=== PATIENT | male | born 1975 ===

== ENCOUNTER 2018-10-12 17:18 | Emergency (ER) | payer MEDICAID ==
[2018-10-12] MEDS ORDERED: Sodium Chloride 0.9% 1,000 ML IV ONE ×2 (18:04→18:36)
--- NOTE | 2018-10-12 18:10 | C.PDOC ---
History Of Present Illness 43 year old male with PMHx of thyroid disease and heroin abuse presents to the ED complaining of abdominal cramping, non-bilious non-bloody vomiting, generalized mylgias and dizziness ongoing for 3 days. Denies any syncopal episodes, fever, chills, or urinary symptoms. Reports he shot heroin [employer]. <Marlin Willard - Last Filed: 10/12/18 18:56> History Per: Patient History/Exam Limitations: no limitations Onset/Duration Of Symptoms: Days (3) Current Symptoms Are (Timing): Still Present Location Of Pain/Discomfort: Diffuse Associated Symptoms: Nausea, Vomiting. denies: Fever, Chills, Diarrhea <Marlin Willard - Last Filed: 10/12/18 18:56> <Gagan Sánchez - Last Filed: 10/12/18 21:28> Time Seen by Provider: 10/12/18 17:22 Chief Complaint (Nursing): Abdominal Pain Past Medical History Reviewed: Historical Data, Nursing Documentation, Vital Signs Vital Signs: Last Vital Signs Temp 98 F 10/12/18 17:26 Pulse 58 L 10/12/18 17:26 Resp 18 10/12/18 17:26 BP 126/82 10/12/18 17:26 Pulse Ox 98 10/12/18 17:26 - Medical History PMH: Anxiety, Depression, Hypothyroidism Other Surgeries: Herniorrhaphy Family History: States: No Known Family Hx - Social History Hx Alcohol Use: No Hx Substance Use: Yes (heroin) - Immunization History Hx Tetanus Toxoid Vaccination: No Hx Influenza Vaccination: No Hx Pneumococcal Vaccination: No <Marlin Willard - Last Filed: 10/12/18 18:56> Vital Signs: Last Vital Signs Temp 97.8 F 10/12/18 20:35 Pulse 52 L 10/12/18 20:35 Resp 16 10/12/18 20:35 BP 121/76 10/12/18 20:35 Pulse Ox 99 10/12/18 20:35 <Gagan Sánchez - Last Filed: 10/12/18 21:28> Review Of Systems Except As Marked, All Systems Reviewed And Found Negative. Constitutional: Positive for: Weakness, Other (myalgias). Negative for: Fever, Chills Gastrointestinal: Positive for: Nausea, Vomiting, Abdominal Pain. Negative for: Diarrhea Genitourinary: Negative for: Dysuria, Frequency, Hematuria, Penile Discharge Neurological: Positive for: Dizziness <Marlin Willard Last Filed: 10/12/18 18:56> Physical Exam - Physical Exam Appears: Non-toxic, No Acute Distress Skin: Warm, Dry, Jaundice (slight) Head: Atraumatic, Normacephalic Eye(s): bilateral: Scleral Icterus Nose: Normal Oral Mucosa: Moist, Other (pink) Neck: Normal ROM, Supple Chest: Symmetrical Cardiovascular: Rhythm Regular Respiratory: No Rales, No Rhonchi, No Wheezing Gastrointestinal/Abdominal: Bowel Sounds (active and normal ), Soft, Tenderness (epigastric tenderness) Back: No CVA Tenderness Extremity: Normal ROM Extremity: Bilateral: Atraumatic, Normal Color And Temperature, Normal ROM Neurological/Psych: Oriented x3, Normal Speech Gait: Steady <Marlin Willard Filed: 10/12/18 18:56> ED Course And Treatment - Laboratory Results Result Diagrams: 10/12/18 18:18 10/12/18 18:18 ECG: Interpreted By Me, Viewed By Me ECG Rhythm: Sinus Bradycardia ECG Interpretation: No Acute Changes Interpretation Of ECG: Normal intervals. Normal axis. No ST elevations. Rate From EC O2 Sat by Pulse Oximetry: 98 (RA) Pulse Ox Interpretation: Normal <Marlin Willard Filed: 10/12/18 18:56> - Laboratory Results Result Diagrams: 10/12/18 18:18 11 18:18 Pulse Ox Interpretation: Normal - CT Scan/US CT abd/pelvis Other Rad Studies (CT/US): Read By Radiologist, Radiology Report Reviewed CT/US Interpretation: EXAM: CT Abdomen with IV contrast. CLINICAL HISTORY: PEERI UMBILICAL PAIN. TECHNIQUE: Axial computed tomography images of the abdomen and pelvis with intravenous contrast. 0.00 mGy-cm. CONTRAST: With; OMNI 300/100ML. COMPARISON: None provided. FINDINGS: LUNG BASES: The lung bases appear clear. No pleural effusions are seen. LIVER: Unremarkable. GALLBLADDER AND BILE DUCTS: The gallbladder appears within normal limits. Gallstones are present within a contracted gallbladder. No biliary ductal dilatation is evident. PANCREAS: Unremarkable. SPLEEN: Mildly enlarged at 14 cm in length. ADRENAL GLANDS: Unremarkable. KIDNEYS, URETERS, AND BLADDER: The kidneys appear within normal limits. There is no hydronephrosis or hydroureter. No urinary calculi are seen. STOMACH AND BOWEL: Unremarkable appearance of the stomach and bowel. No evidence of bowel obstruction. No evidence suggesting enteritis or colitis. Diverticular changes of mild thickening the wall of the sigmoid and distal descending colon present. APPENDIX: No evidence of acute appendicitis on CT examination. PERITONEUM: No free fluid. No free air. LYMPH NODES: No lymphadenopathy is evident. VASCULATURE: No evidence of abdominal aortic aneurysm. BONES: No aggressive appearing osseous lesion. No acute osseous pathology evident. Degenerative changes present with disc space narrowing at the lower lumbar spine. IMPRESSION: No acute intra-abdominal abnormality. Mildly enlarged spleen. Gallstones in a contracted gallbladder. Diverticular changes with mild wall thickening of the sigmoid and distal descending colon. No pericolonic stranding or abscess identified. Clinical correlation advised. . Electronically signed on Oct 12, 2018 8:52:48 PM EST by: Lukas Jiang M.D., Certified by Alfredo GELLER Radiology Progress Note: spoke with pt at length about the need for taking his meds. Pt also does not want to be hospitalized. Understands the risks including permanet dysability and . Encouraged to retur. Pt states that he fells much better and will return if symtoms recur Reevaluation Time: 21:22 Reassessment Condition: Improved <Gagan Sánchez - Last Filed: 10/12/18 21:28> Medical Decision Making Medical Decision Making: Plan - EKG - Bloodwork - XR abdomen - Zofran 4mg IVP - IV fluids - UA <Marlin Willard - Last Filed: 10/12/18 18:56> Medical Decision Making: Upon provider reevaluation patient is feeling better, is medically stable, and requires no further treatment in the ED at this time. Patient will be discharged home with Rx for synthroid. Counseling was provided and all questions were answered regarding diagnosis and need for follow up with the referred clinic. There is agreement to discharge plan. Return if symptoms persist or worsen. <Gagan Sánchez - Last Filed: 10/12/18 21:28> Disposition - Disposition Disposition Time: 19:00 <Marlin Willard - Last Filed: 10/12/18 18:56> Counseled Patient/Family Regarding: Studies Performed, Diagnosis, Need For Followup, Rx Given <Gagan Sánchez - Last Filed: 10/12/18 21:28> - Disposition Referrals: [facility] [Outside] [facility] [Outside] Disposition: HOME/ ROUTINE Condition: FAIR Additional Instructions: Please return id symptoms recur Prescriptions: Levothyroxine [Synthroid] 100 mcg PO DAILY #14 tab Instructions: Acute Abdomen (Belly Pain), Adult (DC), Gallstones (DC), Hypothyr oidism (Underactive Thyroid) (DC) - Clinical Impression Clinical Impression: Abdominal pain, Transaminitis, Hypothyroid, Gallstones - Scribe Statement The provider has reviewed the documentation as recorded by the Scriblillie Hooper All medical record entries made by the Scribe were at my direction and personally dictated by me. I have reviewed the chart and agree that the record accurately reflects my personal performance of the history, physical exam, medical decision making, and the department course for this patient. I have also personally directed, reviewed, and agree with the discharge instructions and di sposition. <Marlin Willard - Last Filed: 10/12/18 18:56> Physician Patient Turnover Patient Signed Over To: Gagan Sánchez Handoff Comments: pending imaging, labs, ua, dispo <Marlin Willard - Last Filed: 10/12/18 18:56>
[2018-10-12 18:24] LABS: BASO # 0.1 K/uL (0.0-0.2); BASO % 1.7 % (0.0-2.0); EOS # 0.2 K/uL (0.0-0.7); EOS % 5.6 % (0.0-4.0); HEMOGLOBIN 15.3 g/dL (12.0-18.0); LYMPH # 1.4 K/uL (1.0-4.3); LYMPH % 34.2 % (20.0-40.0); MEAN CELL VOLUME 90.5 fL (80.0-94.0); MEAN CORPUSCULAR HEMOGLOBIN 31.2 pg (27.0-31.0); MEAN CORPUSCULAR HGB CONC 34.5 g/dL (33.0-37.0); MEAN PLATELET VOLUME 8.1 fL (7.2-11.7); MONO # 0.3 K/uL (0.0-0.8); NEUT # 2.1 K/uL (1.8-7.0); NEUT % 50.5 % (50.0-75.0); NRBC % 0.2 % (0.0-2.0); RBC 4.89 Mil/uL (4.40-5.90); RED CELL DISTRIBUTION WIDTH 15.7 % (11.5-14.5); WHITE BLOOD COUNT 4.1 K/uL (4.8-10.8)
[2018-10-12 18:37] LABS: ALB/GLOB RATIO 0.7 (1.0-2.1); ALBUMIN 3.7 g/dL (3.5-5.0); ALT/SGPT 548 U/L (21-72); BLOOD UREA NITROGEN 11 mg/dL (9-20); GFR NON-AFRICAN AMERICAN > 60; LIPASE 86 U/L (23-300)
[2018-10-12 18:53] LABS: URINE BILIRUBIN 1+ (NEGATIVE); URINE CLARITY Clear (Clear); URINE COLOR Amber (YELLOW); URINE GLUCOSE (UA) NORMAL (Normal); URINE LEUKOCYTE ESTERASE NEG Leu/uL (Negative); URINE PROTEIN NEGATIVE (NEGATIVE)
[2018-10-12 18:59] LABS: URINE BLOOD TRACE (NEGATIVE)
[2018-10-12 19:09] LABS: BARBITURATES, UR NEGATIVE (NEGATIVE); BENZODIAZEPINES, UR NEGATIVE (NEGATIVE); PHENCYCLIDINE, UR NEGATIVE (NEGATIVE)
[2018-10-12 19:23] LABS: OPIATES, UR POSITIVE (NEGATIVE)
[2018-10-12] MEDS ORDERED: Iohexol 300 100 ML IJ ONE (20:15)
[2018-10-12 20:18] LABS: AST/SGOT 741 U/L (17-59)
[2018-10-12 20:37] VITALS: RESP 16
[2018-10-12] MEDS ORDERED: Levothyroxine 100 MCG TAB PO STA (21:31)
[2018-10-12 21:48] VITALS: BP 132/74; PULSE 67; TEMP 98.2; O2SAT 98
[2018-10-13] MEDS ORDERED: Levothyroxine 100 MCG TAB PO SCH (06:30)
--- NOTE | 2018-10-13 10:00 | RAD ---
Date of service: 10/12/2018 PROCEDURE: Radiographs of the chest and abdomen (obstructive series) HISTORY: abd pain COMPARISON: No prior. TECHNIQUE: AP radiograph of the chest, with upright and supine radiographs of the abdomen. FINDINGS: CHEST: Lungs: Clear. Cardiovascular: Probable mild cardiomegaly.. No pulmonary vascular congestion. No aortic atherosclerotic calcification present Pleura: No pleural fluid. No pneumothorax. Other findings: None. ABDOMEN AND PELVIS: Bowel: Moderate Stool retention. No bowel obstruction appreciated. Free air: None. Bones: Bilateral hip and inferior lumbar facet arthrosis. Other findings: None. IMPRESSION: No infiltrate. Moderate Stool retention. No bowel obstruction appreciated. Other findings as above.
--- NOTE | 2018-10-13 11:19 | CT ---
Date of service: 10/12/2018 PROCEDURE: CT Abdomen and Pelvis. HISTORY: Abdominal pain COMPARISON: Correlation made with obstructive series earlier same day TECHNIQUE: Contiguous axial images of the abdomen and pelvis. Oral contrast was administered. No IV contrast given. Coronal and Sagittal reformats generated. Radiation dose: Total exam DLP = 1110.21 mGy-cm. This CT exam was performed using one or more of the following dose reduction techniques: Automated exposure control, adjustment of the mA and/or kV according to patient size, and/or use of iterative reconstruction technique. FINDINGS: LOWER THORAX: Minimal passive/dependent type atelectasis both lower lung morales.. No evidence of focal consolidation. No effusion or basilar pneumothorax. Heart size within range of normal. No significant pericardial effusion. Tiny hiatal hernia felt be present. LIVER: Liver exhibits normal size measuring just over 14 cm however there is a nodular surface contour suggesting underlying cirrhosis. No obvious hepatic mass or collection. Portal and splenic veins are opacified. GALLBLADDER AND BILE DUCTS: Intraluminal gallbladder calculi are present within a contracted appearing gallbladder with secondary thick-walled appearance. Acute or chronic inflammatory process of the gallbladder cannot be completely excluded. Clinical correlation recommended. PANCREAS: Pancreas appears slightly atrophic and fatty replaced. No pancreatic masses, collections or calcifications. No significant pancreatic ductal dilatation SPLEEN: Spleen is mildly enlarged measuring over 15 cm in CC dimension. ADRENALS: No adrenal lesions. KIDNEYS AND URETERS: The kidneys demonstrate symmetric nephrograms. No evidence of nephrolithiasis or hydronephrosis. BLADDER: Gr urinary bladder appears incompletely distended. No evidence of intraluminal urinary bladder calculi. REPRODUCTIVE: Un unremarkable as visualized. APPENDIX: Unremarkable. BOWEL: Evaluation of the bowel is somewhat limited due to the lack of oral contrast material. Stomach is distended with food debris liquid and air. Visualized loops of small bowel exhibit relatively normal contour and caliber. Questionable minimal wall thickening of a few loops of distal small bowel left lower abdomen. Colonic diverticula are present the bulk of which arise from the sigmoid colon. No definitive radiographic evidence of acute diverticulitis. PERITONEUM: Unremarkable. No fluid collection. No free air. There are small fat containing umbilical and right inguinal hernias. LYMPH NODES: Multiple small nonspecific retroperitoneal lymph nodes are present VASCULATURE: Unremarkable. No aortic aneurysm. No aortic atherosclerotic calcification or mural plaque present. BONES: Mild multilevel degenerative spondylosis of the lower thoracic and lumbar spine. No acute compression fractures no retropulsed fragments. There is a elliptical shaped lucency within the superior aspect right iliac bone with with no obvious expansile changes or cortical breakthrough.. Additionally, tiny sclerotic focus left iliac bone probably represents bone island or osteoma. OTHER FINDINGS: None. IMPRESSION: Liver exhibits nodular surface contour with splenomegaly. Collectively findings are consistent with underlying cirrhosis. Intraluminal gallbladder calculi within a contracted gallbladder and secondary wall thickening. Note however that the possibility of acute or chronic inflammatory process not completely excluded. Slight wall thickening of a few loops of distal small bowel in the left lower abdomen; rule out nonspecific enteritis. Diverticulosis without definitive radiographic evidence of acute diverticulitis. Elliptical shaped lucent lesion within the superior aspect right iliac bone with no obvious associated expansile changes are cortical breakthrough. Probable small bone island or osteoma left iliac bone
--- NOTE | 2018-10-13 12:46 | CARD ---
APPROVED REPORT Date of service: 10/12/2018 EKG Measurement Heart [id number] [id number] <Conclusion> Sinus bradycardia Otherwise normal ECG
== END 2018-10-12 21:48 | disposition home or self-care (01) ==
LOC: C.ER 17:18
DX: K80.80 Other cholelithiasis without obstruction (principal); R74.0 Nonspecific elevation of levels of transaminase and lactic acid dehydrogenase [LDH]; E03.9 Hypothyroidism, unspecified; R10.9 Unspecified abdominal pain
CPT/HCPCS: 74022; 74177; 80053; 80324; 80345; 80346; 80349; 80353; 80358; 80361; 81001; 83690; 83992; 84443; 84484; 85025; 87040; 93005; 96361; 96374; 99285; J2405; J7030; Q9967

== ENCOUNTER 2018-10-21 03:59 | Inpatient (IN) | payer MEDICAID ==
[2018-10-21 04:15] VITALS: TEMP 98.9
[2018-10-21] MEDS ORDERED: Sodium Chloride 0.9% 1,000 ML IV ONE ×2 (04:22→08:11)
--- NOTE | 2018-10-21 04:49 | C.PDOC ---
History Of Present Illness 43 yo male, heroin use, comes in for evaluation of RUQ pain worsening for past 1 week associated with N/V/D for past 3-4 days. Pt report, was seen here week ago " when was offered admission but refused". Otherwise, pt denies fever, chills, CP, SOB, dyspnea, palpitation, hematemesis, melena, hematoschezia. Ambulate to ED, appears in pain. Time Seen by Provider: 10/21/18 04:18 Chief Complaint (Nursing): Abdominal Pain History Per: Patient Past Medical History Reviewed: Historical Data, Nursing Documentation, Vital Signs Vital Signs: Last Vital Signs Temp 98.9 F 10/21/18 04:11 Pulse 80 10/21/18 04:11 Resp 18 10/21/18 04:11 BP 139/83 10/21/18 04:11 Pulse Ox 99 10/21/18 04:11 - Medical History PMH: Anxiety, Depression, Hypothyroidism Surgical History: No Surg Hx Family History: States: No Known Family Hx - Social History Hx Tobacco Use: Yes Hx Alcohol Use: No Hx Substance Use: Yes (heroin) - Immunization History Hx Tetanus Toxoid Vaccination: No Hx Influenza Vaccination: No Hx Pneumococcal Vaccination: No Review Of Systems Except As Marked, All Systems Reviewed And Found Negative. Constitutional: Negative for: Fever, Chills ENT: Negative for: Throat Pain Cardiovascular: Negative for: Chest Pain, Palpitations, Edema, Light Headedness Respiratory: Negative for: Cough, Shortness of Breath Gastrointestinal: Positive for: Nausea, Vomiting, Abdominal Pain, Diarrhea. Negative for: Melena, Hematochezia, Hematemesis Genitourinary: Negative for: Dysuria Musculoskeletal: Negative for: Neck Pain Neurological: Negative for: Weakness, Numbness Physical Exam - Physical Exam Appears: Well, Non-toxic, No Acute Distress Skin: Normal Color, Warm, Dry, No Rash Head: Normacephalic Eye(s): bilateral: PERRL Nose: No Flaring, No Discharge Oral Mucosa: Moist Throat: Normal Neck: Trachea Midline, Supple Cardiovascular: Rhythm Regular, No Murmur, No JVD Respiratory: No Decreased Breath Sounds, No Accessory Muscle Use, No Stridor, No Wheezing Gastrointestinal/Abdominal: Soft, Tenderness (severe RUQ), No Distention, No Gu arding, No Rebound Back: No CVA Tenderness Extremity: Normal ROM, No Deformity, No Swelling Neurological/Psych: Oriented x3, Normal Speech ED Course And Treatment - Laboratory Results Result Diagrams: 10/21/18 05:01 10/21/18 05:01 Lab Interpretation: Abnormal (LFT, AMylase) O2 Sat by Pulse Oximetry: 99 Pulse Ox Interpretation: Normal - CT Scan/US CT A/P from 10/12/18 Other Rad Studies (CT/US): Radiology Report Reviewed CT/US Interpretation: 10/12/2018. PROCEDURE: CT Abdomen and Pelvis. HISTORY: Abdominal pain. COMPARISON: Correlation made with obstructive series earlier same day. TECHNIQUE: Contiguous axial images of the abdomen and pelvis. Oral contrast was administered. No IV contrast given. Coronal and Sagittal reformats generated. Radiation dose: Total exam DLP = 1110.21 mGy-cm. This CT exam was performed using one or more of the following dose reduction techniques: Autom ated exposure control, adjustment of the mA and/or kV according to patient size, and/or use of iterative reconstruction technique. FINDINGS: LOWER THORAX: Minimal passive/dependent type atelectasis both lower lung morales.. No evidence of focal consolidation. No effusion or basilar pneumothorax. Heart size within range of normal. No significant pericardial effusion. Tiny hiatal hernia felt be present. LIVER: Liver exhibits normal size measuring just over 14 cm however there is a nodular surface contour suggesting underlying cirrhosis. No obvious hepatic mass or collection. Portal and splenic veins are opacified. GALLBLADDER AND BILE DUCTS: Intraluminal gallbladder calculi are present within a contracted appearing gallbladder with secondary thick-walled appearance. Acute or chronic inflammatory process of the gallbladder cannot be completely excluded. Clinical correlation recommended. PANCREAS: Pancreas appears slightly atrophic and fatty replaced. No pancreatic masses, collections or calcifications. No significant pancreatic ductal dilatation. SPLEEN: Spleen is mildly enlarged measuring over 15 cm in CC dimension. ADRENALS: No adrenal lesions. KIDNEYS AND URETERS: The kidneys demonstrate symmetric nephrograms. No evidence of nephrolithiasis or hydronephrosis. BLADDER: Gr urinary bladder appears incompletely distended. No evidence of intraluminal urinary bladder calculi. REPRODUCTIVE: Un unremarkable as visualized. APPENDIX: Unremarkable. BOWEL: Evaluation of the bowel is somewhat limited due to the lack of oral contrast material. Stomach is distended with food debris liquid and air. Visualized loops of small bowel exhibit relatively normal contour and caliber. Questionable minimal wall thickening of a few loops of distal small bowel left lower abdomen. Colonic diverticula are present the bulk of which arise from the sigmoid colon. No definitive radiographic evidence of acute diverticulitis. PERITONEUM: Unremarkable. No fluid collection. No free air. There are small fat containing umbilical and right inguinal hernias. LYMPH NODES: Multiple small nonspecific retroperitoneal lymph nodes are present. VASCULATURE: Unremarkable. No aortic aneurysm. No aortic atherosclerotic calcification or mural plaque present. BONES: Mild multilevel degenerative spondylosis of the lower thoracic and lumbar spine. No acute compression fractures no retropulsed fragments. There is a elliptical shaped lucency within the superior aspect right iliac bone with with no obvious expansile changes or cortical breakthrough.. Additionally, tiny sclerotic focus left iliac bone probably represents bone island or osteoma. OTHER FINDINGS: None. IMPRESSION: Liver exhibits nodular surface contour with splenomegaly. Collectively finding s are consistent with underlying cirrhosis. Intraluminal gallbladder calculi within a contracted gallbladder and secondary wall thickening. Note however that the possibility of acute or chronic inflammatory process not completely excluded. Slight wall thickening of a few loops of distal small bowel in the left lower abdomen; rule out nonspecific enteritis. Diverticulosis without definitive radiographic evidence of acute diverticulitis. Elliptical shaped lucent lesion within the superior aspect right iliac bone with no obvious associated expansile changes are cortical breakthrough. Probable small bone island or osteoma left iliac bone Gallbladder US Other Rad Studies (CT/US): Read By Radiologist CT/US Interpretation: (+) gallstones with wall thickening 0.66 cm Progress Note: Pt remained unchanged during the ED evaluation. Case discussed with residential collections, requested CT A/P now. WIll eval pt in ED. Case discussed with Med and admission arranged with DX: Acute pancreactitis, cholecystitis. Disposition - Disposition Disposition: HOSPITALIZED Disposition Time: 06:36 Condition: STABLE Forms: [facility] (Romansh) - Clinical Impression Clinical Impression: Gallstones, Cholecystitis, Pancreatitis
[2018-10-21] MEDS ORDERED: Sodium Chloride 0.9% 1,000 ML ONE ×2 (05:04→08:31)
[2018-10-21 05:06] LABS: BASO % 0.4 % (0.0-2.0); EOS # 0.1 K/uL (0.0-0.7); EOS % 1.7 % (0.0-4.0); HEMOGLOBIN 14.7 g/dL (12.0-18.0); LYMPH % 17.6 % (20.0-40.0); MEAN CELL VOLUME 91.2 fL (80.0-94.0); MEAN CORPUSCULAR HEMOGLOBIN 31.3 pg (27.0-31.0); MEAN CORPUSCULAR HGB CONC 34.3 g/dL (33.0-37.0); MONO # 0.5 K/uL (0.0-0.8); MONO % 8.5 % (0.0-10.0); NEUT % 71.8 % (50.0-75.0); NRBC % 0.1 % (0.0-2.0); RBC 4.69 Mil/uL (4.40-5.90); RED CELL DISTRIBUTION WIDTH 15.9 % (11.5-14.5); WHITE BLOOD COUNT 5.5 K/uL (4.8-10.8)
[2018-10-21 05:13] LABS: INR 1.5; PROTHROMBIN TIME 16.1 SECONDS (9.7-12.2)
[2018-10-21 05:24] LABS: ALB/GLOB RATIO 0.7 (1.0-2.1); ALBUMIN 3.7 g/dL (3.5-5.0); ALT/SGPT 371 U/L (21-72); AMYLASE 139 U/L (30-110); AST/SGOT 682 U/L (17-59); BLOOD UREA NITROGEN 10 mg/dL (9-20); GFR NON-AFRICAN AMERICAN > 60; LIPASE 257 U/L (23-300)
[2018-10-21 05:48] LABS: SQUAMOUS EPITHIAL < 1 /hpf (0-5); URINE BILIRUBIN 1+ (NEGATIVE); URINE BLOOD NEGATIVE (NEGATIVE); URINE CALCIUM OXALATE CRYSTALS FEW /hpf (<OCC); URINE CLARITY Clear (Clear); URINE COLOR Amber (YELLOW); URINE GLUCOSE (UA) NORMAL (Normal); URINE LEUKOCYTE ESTERASE NEG Leu/uL (Negative); URINE PROTEIN NEGATIVE (NEGATIVE)
[2018-10-21 05:58] LABS: BARBITURATES, UR NEGATIVE (NEGATIVE); BENZODIAZEPINES, UR NEGATIVE (NEGATIVE); PHENCYCLIDINE, UR NEGATIVE (NEGATIVE)
[2018-10-21] MEDS ORDERED: Piperacillin/Tazobact 3.375 gm 100 ML IV STA (06:36)
[2018-10-21 06:46] LABS: OPIATES, UR POSITIVE (NEGATIVE)
[2018-10-21] MEDS ORDERED: Piperacillin/Tazobact 3.375 gm 100 ML IVPB ONE (06:48)
[2018-10-21] MEDS ORDERED: Iodixanol 320 MG/ML 100 ML BOTTLE IV ONE (06:51)
[2018-10-21] MEDS ORDERED: Morphine 4 MG/ML VIAL ONE ×4 (06:55→15:24)
[2018-10-21] MEDS ORDERED: metroNIDAZOLE IV 500 mg/100 ml 500 MG/100 ML BAG IVPB SCH (08:15)
[2018-10-21] MEDS ORDERED: metroNIDAZOLE IV 500 mg/100 ml 500 MG/100 ML BAG ONE (08:31)
--- NOTE | 2018-10-21 09:22 | CT ---
Date of service: 10/21/2018 PROCEDURE: CT Abdomen and Pelvis.. HISTORY: RUQ pain COMPARISON: Comparison made with CT scan of the abdomen and pelvis dated 10/12/2018. TECHNIQUE: Contiguous axial images of the abdomen and pelvis performed following intravenous injection of approximately 100 cc Visipaque 320 contrast material.. Coronal and Sagittal reformats generated. Radiation dose: Total exam DLP = 1081.88 mGy-cm. This CT exam was performed using one or more of the following dose reduction techniques: Automated exposure control, adjustment of the mA and/or kV according to patient size, and/or use of iterative reconstruction technique. FINDINGS: LOWER THORAX: Small hiatal hernia. Heart size within range of normal. No significant pericardial effusion. Of passive/dependent type atelectasis both posterior lower lung morales right greater than left. LIVER: Liver exhibits normal size and attenuation pattern without mass collection or calcification.. Mild fatty hepatic infiltration. No obvious hepatic mass collection or calcification. Note that the liver exhibits slightly nodular appearing contour; findings suggest underlying cirrhosis however clinical correlation recommended.. Rule out GALLBLADDER AND BILE DUCTS: Gallbladder appears incompletely distended which may in part account for thick-walled appearance with intraluminal. Additionally, there does appear to be some pericholecystic fluid as well. Findings suggest underlying mild acute cholecystitis. Clinical correlation recommended. PANCREAS: The pancreas appears slightly atrophic and fatty replaced. There are infiltration changes seen in the the peripancreatic fat suggesting underlying pancreatitis. There is also some mild fluid seen along the posterior margin of the pancreatic tail extending into the left anterior pararenal space. There also infiltration changes involving the mesentery right paracolic gutter region as well. SPLEEN: Spleen is enlarged measuring nearly 15 cm in in CC dimension. No obvious splenic mass collection or calcification. ADRENALS: No adrenal lesions. KIDNEYS AND URETERS: Kidneys demonstrate symmetric nephrograms. No evidence of nephrolithiasis or hydronephrosis. BLADDER: Urinary bladder is incompletely distended. No evidence of intraluminal urinary bladder calculi. REPRODUCTIVE: Unremarkable as visualized. APPENDIX: Unremarkable. BOWEL: Evaluation of the bowel is somewhat limited due to the lack of oral contrast. The stomach is distended with food debris liquid and air. Visualized loops of small bowel exhibit normal contour and caliber however there does appear to be a few loops of distal small bowel in the left mid to lower abdomen that exhibits slight wall thickening. Rule out enteritis. Scattered colonic diverticula again noted along descending and sigmoid colon. No definitive radiographic evidence of acute diverticulitis. PERITONEUM: Unremarkable. No fluid collection. No free air. Small fat containing umbilical hernia. LYMPH NODES: Unremarkable. No enlarged lymph nodes. VASCULATURE: Unremarkable. No aortic aneurysm. No aortic atherosclerotic calcification or mural plaque present. BONES: Mild multilevel degenerative spondylosis of the lower thoracic and lumbar spine however no expansile changes or cortical breakthrough seen.. Re demonstrated is an elliptical shaped lucency superior right aspect of the iliac bone of. Small sclerotic focus left iliac bone likely representing osteoma OTHER FINDINGS: None. IMPRESSION: Findings suggest underlying hepatic cirrhosis with fatty infiltration. Splenomegaly. Cholelithiasis with wall thickening of the gallbladder and part due to incomplete distention however there also appears to be some mild pericholecystic fluid. Findings suggest underlying acute cholecystitis. Clinical correlation recommended. Findings also suggest mild acute pancreatitis. Mild wall thickening of several of loops of distal small bowel; rule out underlying enteritis. Diverticulosis without radiographic evidence of acute diverticulitis. Re demonstrated is a lucency right superior iliac bone of uncertain etiology however no expansile changes or cortical breakthrough. See above discussion for additional details and findings.
--- NOTE | 2018-10-21 09:33 | CP.PCM.CON ---
History of Present Illness - History of Present Illness History of Present Illness: Surgery consult note for Dr. Penny Pt is a 43 y/o M with PMH of heroin and cocaine abuse, hypothyroidism who presented to the ED with 10 days of RUQ/epigastric pain, nausea, and vomiting. Patient states that he originally came in to the ED for the pain and got a CT of the abdomen which showed likely cirrhosis of the liver, gallstone, possible enteritis. Patient was advised to stay for possible cholecystectomy but left AMA. Patient states pain hasn't improved and has now become diffuse. This AM he had nausea and vomiting of brown food contents, no blood, and so came back to the ER. Patient denies any fevers, states he also had diarrhea this AM. Denies association between eating and the pain. patient denies hematochezia, melena, dysuria, back pain, or any other symptoms. Patient states this has never happened to him before. PMH: heroin and cocaine abuse, hypothyroidism PSH: Open left inguinal hernia repair ALL: nkda Social: smokes 1/2 PPD for 29 years, denies ETOH use, admits current IV heroin abuse, prior cocaine abuse Review of Systems - Review of Systems All systems: reviewed and no additional remarkable complaints except (as per HPI) Past Patient History - Infectious Disease Hx of Infectious Diseases: None - Past Social History Smoking Status: Light Smoker < 10 Cigarettes Daily Alcohol: None Drugs: Opiates - ENDOCRINE/METABOLIC Hx Hypothyroidism: Yes - PSYCHIATRIC Hx Anxiety: Yes Hx Depression: Yes Hx Substance Use: Yes (heroin) - SURGICAL HISTORY Hx Herniorrhaphy: Yes - ANESTHESIA Hx Anesthesia: No Meds Allergies/Adverse Reactions: Allergies Allergy/AdvReac Type Severity Reaction Status Date / Time No Known Allergies Allergy Verified 10/21/18 04:11 - Medications Medications: Current Medications Clonidine HCl (Catapres) 0.1 mg PO Q8 PRN PRN Reason: SYMPTOMS OF OPIATE WITHDRAWL Last Admin: 10/21/18 08:41 Dose: 0.1 mg Metronidazole (Flagyl) 500 mg in 100 mls @ 100 mls/hr IVPB Q8H DAISHA; Protocol Last Admin: 10/21/18 08:37 Dose: 100 mls/hr Piperacillin Sod/Tazobactam Sod (Zosyn 3.375 In Ns 100ml) 100 mls @ 200 mls/hr IVPB Q12 DAISHA; Protocol Sodium Chloride (Sodium Chloride 0.9%) 1,000 mls @ 100 mls/hr IV .Q10H ONE Stop: 10/21/18 18:10 Last Admin: 10/21/18 08:37 Dose: 100 mls/hr Morphine Sulfate (Morphine) 4 mg IVP Q6 PRN PRN Reason: Pain, moderate (4-7) Physical Exam - Constitutional Appears: Well, Non-toxic, No Acute Distress - Head Exam Head Exam: ATRAUMATIC, NORMOCEPHALIC - Eye Exam Eye Exam: Normal appearance. absent: Conjunctival injection, Scleral icterus - ENT Exam ENT Exam: Mucous Membranes Moist, Normal Oropharynx - Respiratory Exam Respiratory Exam: NORMAL BREATHING PATTERN. absent: Accessory Muscle Use, Respiratory Distress - Cardiovascular Exam Cardiovascular Exam: RRR - GI/Abdominal Exam GI & Abdominal Exam: Soft, Tenderness (moderate ruq and epigastrium, mild RLQ pain). absent: Distended, Rebound, Rigid - Extremities Exam Extremities exam: Positive for: pedal pulses present. Negative for: calf tenderness, pedal edema - Neurological Exam Neurological exam: Alert, Oriented x3 - Psychiatric Exam Psychiatric exam: Normal Affect, Normal Mood - Skin Skin Exam: Dry, Normal Color, Warm Results - Vital Signs Recent Vital Signs: Last Vital Signs Temp 98.9 F 10/21/18 06:32 Pulse 66 10/21/18 08:34 Resp 18 10/21/18 08:34 BP 132/64 10/21/18 08:34 Pulse Ox 100 10/21/18 08:34 - Labs Result Diagrams: 10/21/18 05:01 10/21/18 05:01 Labs: Laboratory Results - last 24 hr 10/21/18 10/21/18 10/21/18 05:01 05:01 05:01 WBC 5.5 RBC 4.69 Hgb 14.7 Hct 42.8 MCV 91.2 MCH 31.3 H MCHC 34.3 RDW 15.9 H Plt Count 106 L MPV 9.0 Neut % (Auto) 71.8 Lymph % (Auto) 17.6 L [place] % (Auto) 8.5 Eos % (Auto) 1.7 Baso % (Auto) 0.4 Neut # (Auto) 4.0 Lymph # (Auto) 1.0 [place] # (Auto) 0.5 Eos # (Auto) 0.1 Baso # (Auto) 0.0 PT 16.1 H INR 1.5 APTT 84 H Sodium 136 Potassium 5.3 H Chloride 103 Carbon Dioxide 22 Anion Gap 16 BUN 10 Creatinine 0.8 Est GFR ( Amer) > 60 Est GFR (Non-Af Amer) > 60 Random Glucose 127 H Calcium 8.0 L Total Bilirubin 3.9 H AST 682 H ALT 371 H D Alkaline Phosphatase 206 H Total Protein 9.4 H Albumin 3.7 Globulin 5.6 H Albumin/Globulin Ratio 0.7 L Amylase 139 H Lipase 257 Urine Color Urine Clarity Urine pH Ur Specific [place] Urine Protein Urine Glucose (UA) Urine Ketones Urine Blood Urine Nitrate Urine Bilirubin Urine Urobilinogen Ur Leukocyte Esterase Urine WBC (Auto) Urine RBC (Auto) Ur Squamous Epith Cells Calcium Oxalate Crystal Urine Opiates Screen Urine Methadone Screen Ur Barbiturates Screen Ur Phencyclidine Scrn Ur Amphetamines Screen U Benzodiazepines Scrn U Oth Cocaine Metabols U Cannabinoids Screen 10/21/18 10/21/18 05:38 05:38 WBC RBC Hgb Hct MCV MCH MCHC RDW Plt Count MPV Neut % (Auto) Lymph % (Auto) [place] % (Auto) Eos % (Auto) Baso % (Auto) Neut # (Auto) Lymph # (Auto) [place] # (Auto) Eos # (Auto) Baso # (Auto) PT INR APTT Sodium Potassium Chloride Carbon Dioxide Anion Gap BUN Creatinine Est GFR ( Amer) Est GFR (Non-Af Amer) Random Glucose Calcium Total Bilirubin AST ALT Alkaline Phosphatase Total Protein Albumin Globulin Albumin/Globulin Ratio Amylase Lipase Urine Color Tisha Urine Clarity Clear Urine pH 6.0 Ur Specific [place] 1.028 Urine Protein Negative Urine Glucose (UA) Normal Urine Ketones Negative Urine Blood Negative Urine Nitrate Negative Urine Bilirubin 1+ H Urine Urobilinogen 4.0 Ur Leukocyte Esterase Neg Urine WBC (Auto) 7 H Urine RBC (Auto) 30 H Ur Squamous Epith Cells < 1 Calcium Oxalate Crystal Few H Urine Opiates Screen Positive H Urine Methadone Screen Negative Ur Barbiturates Screen Negative Ur Phencyclidine Scrn Negative Ur Amphetamines Screen Negative U Benzodiazepines Scrn Negative U Oth Cocaine Metabols Negative U Cannabinoids Screen Negative - Imaging and Cardiology CT scan - abdomen Status: Image reviewed by me, Report reviewed by me US - abdomen Status: Image reviewed by me, Report reviewed by me Assessment & Plan - Assessment and Plan (Free Text) Assessment: 43M with RUQ abdominal pain, cholelithiasis vs cholecystitis vs primary liver p athology Plan: F/U official US report CT shows decompressed GB, cirrhosis, mild enteritis Recommend GI consult No surgery intervention planned at this time, pt may require a cholecystectomy but has elevated BR and needs further work up for possible liver pathology prior to any surgery Trend CBC and CMP PRN nausea and pain medication NPO IVF Discussed with Dr. Penny, who agrees with above Nereyda Ovalle, PGY2
[2018-10-21 09:46] LABS: HEPATITIS B SURFACE AG Negative (NEGATIVE)
[2018-10-21 09:51] LABS: HEPATITIS A IGM NEGATIVE (NEGATIVE); HEPATITIS B CORE AB NEGATIVE (NEGATIVE)
--- NOTE | 2018-10-21 10:51 | US ---
Date of service: 10/21/2018 HISTORY: RUQ pain COMPARISON: Correlation made with CT scan abdomen pelvis 10/12/2018. This study was also read in conjunction with subsequent CT scan abdomen pelvis 10/21/2018 at 0811 hr. TECHNIQUE: Sonographic evaluation of the right upper quadrant of the abdomen. FINDINGS: LIVER: Measures 17.2 cm in length. Liver exhibits nodular surface contour suggesting underlying cirrhosis. The normal echotexture with no definitive masses or collections seen on images presented.. No intrahepatic bile duct dilatation. GALLBLADDER: Intraluminal gallbladder calculi within a contracted gallbladder of that demonstrates wall thickening and/or edema. No sonographic Mathew sign. COMMON BILE DUCT: Measures 3.2 mm. No stones. No dilatation. PANCREAS: The visualized portions of the pancreas appear unremarkable on this ultrasound however please refer to CT scan abdomen pelvis which suggests underlying mild acute pancreatitis. No mass. No ductal dilatation. RIGHT KIDNEY: Measures 13.3 x 4.0 x 5.5 cm in length. Normal echogenicity. No calculus, mass, or hydronephrosis. AORTA: No aneurysmal dilatation. IVC: Unremarkable. OTHER FINDINGS: None . IMPRESSION: Findings suggest underlying cirrhotic liver. Cholelithiasis with contracted gallbladder that demonstrates wall thickening and edema. No sonographic Mathew sign.. Please refer to CT scan of the abdomen pelvis 10/21/2018 for additional findings at suggests underlying acute pancreatitis
[2018-10-21] MEDS ORDERED: Enoxaparin 40 mg Syringe SC SCH (11:00)
[2018-10-21 11:27] LABS: HEPATITIS C ANTIBODY REACTIVE (NEGATIVE)
--- NOTE | 2018-10-21 11:43 | CP.PCM.PCO ---
Physician Communication Note - Physician Communication Note Physician Communication Note: Pt cannot be detoxed from opioids while on morphine.
[2018-10-21] MEDS ORDERED: Enoxaparin 40 mg Syringe ONE (11:46)
[2018-10-21 12:04] VITALS: BP 139/79; PULSE 62; RESP 16; O2SAT 99
[2018-10-21] MEDS ORDERED: Morphine 4 MG/ML VIAL IVP PRN (15:08)
[2018-10-21] MEDS ORDERED: Piperacillin/Tazobact 3.375 gm 100 ML IVPB SCH (19:00)
--- NOTE | 2018-10-21 20:40 | CP.PCM.CON ---
History of Present Illness - History of Present Illness History of Present Illness: Surgery Pt is a 43 y/o M with PMH of heroin and cocaine abuse, hypothyroidism who presented to the ED with 10 days of RUQ/epigastric pain, nausea, and vomiting. Surgery is consulted to evaluate for cholecystitis. Patient states that he originally came in to the ED for the pain and got a CT of the abdomen which showed likely cirrhosis of the liver, gallstone, possible enteritis. Patient was advised to stay for possible cholecystectomy but left AMA. Pt was at [facility] and left AMA earlier today then came to [place]. Patient states pain hasn't improved and has now become diffuse. This AM he had nausea and vomiting of brown food contents, no blood. Last time he had IV heroin was this AM. Pt denies etOH use. Patient denies any fevers, states he also had diarrhea this AM. Denies association between eating and the pain. patient denies hematochezia, melena, dysuria, back pain, or any other symptoms. Patient states this the first time having these sxs. US shows 1.5cm gallstone, 5mm thick GBwall, CBD 3mm, and cirrhotic liver. CT shows mild acute pancreatitis, enteritis and thicken GB wall and pericolecystic fluids PMH: heroin and cocaine abuse, hypothyroidism PSH: Open left inguinal hernia repair ALL: nkda Social: smokes 1/2 PPD for 29 years, denies ETOH use, admits current IV heroin abuse, prior cocaine abuse Review of Systems - Review of Systems Review of Systems: See HPI Past Patient History - Infectious Disease Hx of Infectious Diseases: None - Past Social History Smoking Status: Light Smoker < 10 Cigarettes Daily Alcohol: None Drugs: Opiates - ENDOCRINE/METABOLIC Hx Hypothyroidism: Yes - PSYCHIATRIC Hx Anxiety: Yes Hx Depression: Yes Hx Substance Use: Yes (heroin) - SURGICAL HISTORY Hx Herniorrhaphy: Yes - ANESTHESIA Hx Anesthesia: No Meds Allergies/Adverse Reactions: Allergies Allergy/AdvReac Type Severity Reaction Status Date / Time No Known Allergies Allergy Verified 10/21/18 16:41 Physical Exam - Constitutional Appears: Non-toxic - Head Exam Head Exam: ATRAUMATIC, NORMAL INSPECTION, NORMOCEPHALIC - Eye Exam Eye Exam: EOMI, Normal appearance, PERRL Pupil Exam: NORMAL ACCOMODATION, PERRL - ENT Exam ENT Exam: Mucous Membranes Moist, Normal Exam - Neck Exam Neck exam: Positive for: Normal Inspection - Respiratory Exam Respiratory Exam: NORMAL BREATHING PATTERN - Cardiovascular Exam Cardiovascular Exam: REGULAR RHYTHM - GI/Abdominal Exam GI & Abdominal Exam: Distended, Soft, Tenderness. absent: Firm, Hernia, Mass, Pulsatile Mass, Rigid Additional comments: Diffuse abd TTP - Extremities Exam Extremities exam: Positive for: full ROM, normal inspection - Back Exam Back exam: NORMAL INSPECTION - Neurological Exam Neurological exam: Oriented x3 - Psychiatric Exam Psychiatric exam: Normal Affect, Normal Mood - Skin Skin Exam: Dry, Intact Results - Vital Signs Recent Vital Signs: Last Vital Signs Temp 98.9 F 10/21/18 06:32 Pulse 62 10/21/18 12:02 Resp 16 10/21/18 12:02 BP 139/79 10/21/18 12:02 Pulse Ox 99 10/21/18 12:02 - Labs Result Diagrams: 10/21/18 05:01 10/21/18 05:01 Labs: Laboratory Results - last 24 hr 10/21/18 10/21/18 10/21/18 05:01 05:01 05:01 WBC 5.5 RBC 4.69 Hgb 14.7 Hct 42.8 MCV 91.2 MCH 31.3 H MCHC 34.3 RDW 15.9 H Plt Count 106 L MPV 9.0 Neut % (Auto) 71.8 Lymph % (Auto) 17.6 L [place] % (Auto) 8.5 Eos % (Auto) 1.7 Baso % (Auto) 0.4 Neut # (Auto) 4.0 Lymph # (Auto) 1.0 [place] # (Auto) 0.5 Eos # (Auto) 0.1 Baso # (Auto) 0.0 PT 16.1 H INR 1.5 APTT 84 H Sodium 136 Potassium 5.3 H Chloride 103 Carbon Dioxide 22 Anion Gap 16 BUN 10 Creatinine 0.8 Est GFR ( Amer) > 60 Est GFR (Non-Af Amer) > 60 Random Glucose 127 H Calcium 8.0 L Total Bilirubin 3.9 H AST 682 H ALT 371 H D Alkaline Phosphatase 206 H Total Protein 9.4 H Albumin 3.7 Globulin 5.6 H Albumin/Globulin Ratio 0.7 L Amylase 139 H Lipase 257 Urine Color Urine Clarity Urine pH Ur Specific [place] Urine Protein Urine Glucose (UA) Urine Ketones Urine Blood Urine Nitrate Urine Bilirubin Urine Urobilinogen Ur Leukocyte Esterase Urine WBC (Auto) Urine RBC (Auto) Ur Squamous Epith Cells Calcium Oxalate Crystal Urine Opiates Screen Urine Methadone Screen Ur Barbiturates Screen Ur Phencyclidine Scrn Ur Amphetamines Screen U Benzodiazepines Scrn U Oth Cocaine Metabols U Cannabinoids Screen Hepatitis A IgM Ab Hep Bs Antigen Hep B Core IgM Ab Hepatitis C Antibody 10/21/18 10/21/18 10/21/18 05:38 05:38 08:45 WBC RBC Hgb Hct MCV MCH MCHC RDW Plt Count MPV Neut % (Auto) Lymph % (Auto) [place] % (Auto) Eos % (Auto) Baso % (Auto) Neut # (Auto) Lymph # (Auto) [place] # (Auto) Eos # (Auto) Baso # (Auto) PT INR APTT Sodium Potassium Chloride Carbon Dioxide Anion Gap BUN Creatinine Est GFR ( Amer) Est GFR (Non-Af Amer) Random Glucose Calcium Total Bilirubin AST ALT Alkaline Phosphatase Total Protein Albumin Globulin Albumin/Globulin Ratio Amylase Lipase Urine Color [place] Urine Clarity Clear Urine pH 6.0 Ur Specific [place] 1.028 Urine Protein Negative Urine Glucose (UA) Normal Urine Ketones Negative Urine Blood Negative Urine Nitrate Negative Urine Bilirubin 1+ H Urine Urobilinogen 4.0 Ur Leukocyte Esterase Neg Urine WBC (Auto) 7 H Urine RBC (Auto) 30 H Ur Squamous Epith Cells < 1 Calcium Oxalate Crystal Few H Urine Opiates Screen Positive H Urine Methadone Screen Negative Ur Barbiturates Screen Negative Ur Phencyclidine Scrn Negative Ur Amphetamines Screen Negative U Benzodiazepines Scrn Negative U Oth Cocaine Metabols Negative U Cannabinoids Screen Negative Hepatitis A IgM Ab Negative Hep Bs Antigen Negative Hep B Core IgM Ab Negative Hepatitis C Antibody Reactive Assessment & Plan - Assessment and Plan (Free Text) Assessment: cholecystit vs gallstone pancreatitis v cirrhosis -NPO -IVF -ABX -Pain. nausea control -f/u blood cx -Trend LFT -GI on board -DVT/ GI ppx Will DW Dr. Aldridge
[2018-10-21] MEDS ORDERED: HYDROmorphone 0.5 mg/0.5 ml ISec IVP PRN (20:48)
[2018-10-21] MEDS ORDERED: Lactated Ringer's 1,000 ML IV SCH (21:00)
[2018-10-21] MEDS ORDERED: Piperacillin/Tazobact 3.375 GM in Sodium Chloride 100 ML IVPB SCH (21:00)
[2018-10-22] MEDS ORDERED: Levothyroxine 100 MCG TAB PO SCH (06:30)
== END 2018-10-21 15:51 | disposition left against medical advice (07) | DRG 204 ==
LOC: C.ER 03:59 → C.9E 06:42 → C.5S 15:41 → C.9E 15:49
PROVIDERS: ADMIT Internal Medicine Nephrology; ATTEND Internal Medicine Nephrology
DX: K85.90 Acute pancreatitis without necrosis or infection, unspecified (principal); K80.10 Calculus of gallbladder with chronic cholecystitis without obstruction; K74.60 Unspecified cirrhosis of liver; F11.10 Opioid abuse, uncomplicated; F14.10 Cocaine abuse, uncomplicated; K52.9 Noninfective gastroenteritis and colitis, unspecified; F17.210 Nicotine dependence, cigarettes, uncomplicated; E03.9 Hypothyroidism, unspecified